=== PATIENT | male | born 1990 | race Caucasian/White ===

== ENCOUNTER 2020-03-21 13:42 | Emergency (ER) | payer OTHER, SELFPAY ==
[2020-03-21 13:46] VITALS: BP 151/93; PULSE 110; RESP 18; TEMP 36.6; O2SAT 100
--- NOTE | 2020-03-21 13:54 | ED.WOUNDLAC ---
HPI - Wound/Laceration General Chief Complaint: Wound/Laceration Stated Complaint: L FINGER LACERATION Time Seen by Provider: 03/21/20 13:54 Source: patient and RN notes reviewed Mode of arrival: ambulatory Limitations: no limitations History of Present Illness HPI narrative: 30 year old male who presents from work today with a laceration to the he aspect of his left distal ring finger which occurred about 3 hours ago when they were moving a menu board which came down and a 2X6 board hit his finger causing flap type of laceration. Patient states that he has been unable to control the bleeding he has large band aide to wound and holding towel over finger also. Patient is visibly shaking and states pain is sharp and throbbing to his finger, no injury to nail bed noted, wound on distal he surface flap type of laceration with some bruising of tissue noted. Onset (ago): hour(s) (3) Extremity Location: Left: hand (left ring finger) Place: work Patient tetanus UTD: No Context: accidental Associated symptoms: pain Treatments prior to arrival: bandage Related Data Allergies Allergy/AdvReac Type Severity Reaction Status Date / Time cefaclor [From Ceclor] Allergy Difficulty Verified 03/21/20 13:58 Breathing Penicillins Allergy Difficulty Verified 03/21/20 13:58 Breathing Review of Systems Review of Systems: Narrative: CONSTITUTIONAL: Denies fever, chills, or sweats. EYES: Denies visual changes, redness, or discharge. ENT: Denies rhinorrhea, congestion, sore throat, or otalgia. CARDIOVASCULAR: Denies chest pain, palpitations, or edema. RESPIRATORY: Denies cough or dyspnea. GASTROINTESTINAL: Denies abdominal pain, nausea, vomiting, or diarrhea. GENITOURINARY: Denies dysuria or hematuria. SKIN: Denies rash or itching.positive for laceration to distal he left ring finger MUSCULOSKELETAL: Denies back pain, joint pain, or myalgia. NEUROLOGIC: Denies headache, numbness, or weakness. PSYCHIATRIC: Denies anxiety or depression. All systems reviewed & are unremarkable except as noted in HPI and below PMFSH Past Medical History Medical History (Updated 03/22/20 @ 15:23 by Diane Joseph NP) No significant past medical history Surgical History Surgical History (Updated 03/22/20 @ 15:24 by Diane Joseph NP) No history of previous surgery Social History Social History (Updated 03/22/20 @ 15:24 by Diane Joseph NP) Smoking packs per day: 0.5 Smoking cigarettes per day: 10.0 Smoking status: Current every day smoker Tobacco type: cigarettes Alcohol intake: unknown Substance use: current Substance use type: marijuana Living arrangements: with family Gender identity (if verbalized by the patient): Male Comments At time of signature, agree with nursing past medical, surgical, social history. There is no relevant family history pertinent to the presenting complaint Exam Narrative: Exam Narrative: GENERAL: Well-appearing, well-nourished, and in no acute distress. HEAD: Normocephalic, atraumatic. EYES: PERRLA and EOMI. ENT: Nares clear, no rhinorrhea or epistaxis. Mucous membranes moist. NECK: Supple. CHEST: Clear to auscultation. No respiratory distress.SAO2 100% on room air HEART: Regular rate and rhythm. No murmur heard. Normal peripheral pulses. ABDOMEN: Soft, nontender, nondistended, normal active bowel sounds. EXTREMITIES: Normal range of motion. No edema. SKIN: Warm, dry, no rash. 2cm total flap type of laceration to the distal he aspect of left ring finger with moderate of bleeding noted. Patient denies any tingling or numbness to his finger, states sharp throbbing pain with no injury to nail bed noted. strong left radial pulse with hand warm to touch and pink. Stitches applied after localizing with 1% Lidocaine 5cc for a total of 8 patient tolerated well. NEURO: No focal deficits. Alert and oriented x3. Course Vital Signs Vital signs: Vital Signs Temperature 36.6 C 03/04
[2020-03-21] MEDS: TETANUS,DIPHTHERIA,AC PERTUSSIS ADULT (0.5 ML) BOOSTRIX IM (14:12)
== END 2020-03-21 14:54 | disposition home or self-care (01) ==
PROVIDERS: Emergency Provider Registered Nurse
DX: S61.215A Laceration without foreign body of left ring finger without damage to nail, initial encounter (principal); W20.8XXA Other cause of strike by thrown, projected or falling object, initial encounter; Z23 Encounter for immunization; F17.210 Nicotine dependence, cigarettes, uncomplicated
CPT/HCPCS: 12001; 90471; 90715; 99213; G0463

== ENCOUNTER 2020-04-02 14:59 | Emergency (ER) | payer OTHER, SELFPAY ==
[2020-04-02 15:04] VITALS: BP 138/79; PULSE 105; RESP 16; TEMP 36.9; O2SAT 99
--- NOTE | 2020-04-02 15:19 | ED.WOUNDLAC ---
HPI - Wound/Laceration General Chief Complaint: Wound/Laceration Stated Complaint: remove stitches Time Seen by Provider: 04/02/20 15:08 Source: patient and RN notes reviewed Mode of arrival: ambulatory Limitations: no limitations History of Present Illness HPI narrative: 30-year-old male presents with concern for suture removal. Reports he had sutures placed 12 days ago to the fourth digit of his left hand after he smashed his hand at work. Reports he has been using ointment as prescribed. Denies complications, drainage, erythema. Reports tenderness at the tip of the digit. Related Data Allergies Allergy/AdvReac Type Severity Reaction Status Date / Time cefaclor [From [facility]] Allergy Difficulty Verified 04/02/20 15:08 Breathing Penicillins Allergy Difficulty Verified 04/02/20 15:08 Breathing Review of Systems Review of Systems: Narrative: CONSTITUTIONAL: Denies malaise, chills, sweats, or fever. CARDIOVASCULAR: Denies chest pain, palpitations RESPIRATORY: Deniesdyspnea. SKIN: Sutures to the fourth digit of the left hand, reports tenderness MUSCULOSKELETAL: Denies musculoskeletal pain NEUROLOGIC: Denies numbness, weakness All systems reviewed & are unremarkable except as noted in HPI and below PMFSH Past Medical History Medical History No significant past medical history Surgical History Surgical History (Updated 03/22/20 @ 15:24 by Diane Joseph NP) No history of previous surgery Social History Social History (Updated 03/22/20 @ 15:24 by Diane Joseph NP) Smoking packs per day: 0.5 Smoking cigarettes per day: 10.0 Smoking status: Current every day smoker Tobacco type: cigarettes Alcohol intake: unknown Substance use: current Substance use type: marijuana Gender identity (if verbalized by the patient): Male Comments At time of signature, agree with nursing past medical, surgical, social and family history. There is no relevant family history pertinent to the presenting complaint Exam Narrative: Exam Narrative: GENERAL: Well-appearing, well-nourished, and in no acute distress. HEAD: Normocephalic EYES: PERRLA, conjunctivae clear NECK: Supple. CHEST: Speaks in full sentences. No respiratory distress. HEART: Regular rate and rhythm. Normal and equal peripheral pulses. EXTREMITIES: Fourth digit of left hand has have normal strength, reports slightly decreased sensation to the tip of the digit, center of the wound. 5/5 strength with digit flexion, extension. Range of motion normal. Normal digital cascade with flexion of fingers, median, ulnar and radial nerve intact. Good capillary refill and radial pulse. Distal capillary refill less than 3 seconds. SKIN: Warn, dry, intact, pink. 8 simple interrupted sutures noted to the tip of the fourth digit of the left hand to a U-shaped well approximated wound, skin is overly dry, crusted over sutures. Dark-colored tissue surrounding wound. No induration, erythema, drainage noted NEURO: Alert and oriented x3. PSYCH: Normal mood and affect Course Course Emergency Course: Discussed with patient following up with hand specialist if tissue color does not improve after suture removal. Patient is aware of diagnosis, understands and agrees to treatment plan. Anticipatory guidance given. Patient agrees to follow-up as directed and is aware of reasons to seek care at the emergency department. Portions of this record may have been created with voice recognition software Vital Signs Vital signs: Vital Signs Temperature 98.4 F 04/02/20 15:04 Pulse Rate 105 H 04/02/20 15:04 Respiratory Rate 16 04/02/20 15:04 Blood Pressure 138/79 04/02/20 15:04 Pulse Oximetry 99 04/02/20 15:04 Temperature 98.4 F 04/02/20 15:04 Pulse Rate 105 H 04/02/20 15:04 Respiratory Rate 16 04/02/20 15:04 Blood Pressure 138/79 04/02/20 15:04 Pulse Oximetry 99 04/02/20 15:04 Reviewed
--- NOTE | 2020-04-02 15:34 | PC.NURSE ---
1525- Finger soaked in hydrogen peroxide and water per provider request due to inability to remove sutures easily.
== END 2020-04-02 15:42 | disposition home or self-care (01) ==
PROVIDERS: Emergency Provider Nurse Practitioner
DX: S61.412D Laceration without foreign body of left hand, subsequent encounter (principal); X58.XXXD Exposure to other specified factors, subsequent encounter; F17.210 Nicotine dependence, cigarettes, uncomplicated
CPT/HCPCS: 99211; A9270; G0463

== ENCOUNTER 2024-09-13 12:04 | Emergency (ER) | payer OTHER, SELFPAY ==
[2024-09-13 12:13] VITALS: BP 160/77; PULSE 80; RESP 16; TEMP 36.6; O2SAT 100
--- NOTE | 2024-09-13 12:29 | ED.GENADULT ---
HPI - General Adult General Chief complaint: Unspecified Stated complaint: Hernia Time Seen by Provider: 09/13/24 12:20 Source: patient and RN notes reviewed Mode of arrival: ambulatory Limitations: no limitations History of Present Illness HPI narrative: 34-year-old male presents [facility] complaining of possible hernia to his belly button. Patient stated he noticed a protrusion head of his belly button approximately 1 week ago. Patient denies any apparent injury that might have caused it. Patient states he does have to lift objects around 50 lb at work. Patient denies any abdominal surgeries for any congenital hernias. Patient reports he notices it more when he coughs more when he uses abdomen muscles. Patient denies any abdominal pain, swelling, discharge, fevers, nausea, vomiting, or diarrhea. Related Data Allergies Allergy/AdvReac Type Severity Reaction Status Date / Time cefaclor (From [facility]) Allergy Difficulty Verified 04/02/20 15:08 Breathing Penicillins Allergy Difficulty Verified 04/02/20 15:08 Breathing Review of Systems Review of Systems: CONSTITUTIONAL: Denies fever, chills, or sweats. EYES: Denies visual changes, redness, or discharge. ENT: Denies rhinorrhea, congestion, sore throat, or otalgia. CARDIOVASCULAR: Denies chest pain, palpitations, or edema. RESPIRATORY: Denies cough or dyspnea. GASTROINTESTINAL: Denies abdominal pain, nausea, vomiting, or diarrhea. Positive for hernia. GENITOURINARY: Denies dysuria or hematuria. SKIN: Denies rash or itching. MUSCULOSKELETAL: Denies back pain, joint pain, or myalgia. NEUROLOGIC: Denies headache, numbness, or weakness. PSYCHIATRIC: Denies anxiety or depression. All other systems reviewed are negative, except as documented in HPI. [facility] Past Medical History Medical History No significant past medical history Surgical History Surgical History No history of previous surgery Social History Social History Smoking packs per day: 0.5 Smoking cigarettes per day: 10.0 Smoking status: Current every day smoker Tobacco type: cigarettes Alcohol intake: unknown Substance use: current Substance use type: marijuana Living arrangements: with family Gender identity (if verbalized by the patient): Male Comments At the time of my signature, I reviewed and agree with the nursing past medical, surgical, social, and family history. There is no relevant family history pertinent to the patient complaint. Exam Narrative: GENERAL: This is a well-nourished, well-developed adult, in no apparent distress. They are non ill-appearing, nontoxic appearing. HEAD: normocephalic, atraumatic. EYES: Sclera clear/white. Conjunctiva normal. Vision is grossly intact. Extraocular movements intact EARS: External ears normal, Hearing grossly intact. NOSE: External nose normal THROAT: Mucous membranes moist, NECK: Normal range of motion CARDIOVASCULAR: Regular rate and rhythm without murmurs, gallops, or rubs. RESPIRATORY: Clear to auscultation. Breath sounds equal bilaterally. No wheezes, rales, or rhonchi. GASTROINTESTINAL: Abdomen soft, flat, non-tender, nondistended. Bowel sounds are active. No hepato-splenomegaly. No guarding. No rebound tenderness. Umbilical hernia present. Hernia measuring approximately 2 cm x 1 cm. Hernias level with abdominal wall. Hernia without erythema, swelling, discharge, or tenderness to palpation. SKIN: warm, Dry, intact with no suspicious lesions or rash, good texture and turgor. NEURO: awake, alert, and oriented to person, place and time. There were no obvious focal neurologic abnormalities. EXTREMITIES: No joint tenderness, effusion, or edema noted. BACK: Nontender without deformity. Course Course Emergency Course: Portions of this record may have been created with voice recognition software Level of Care: Express Care Visit Vital Signs Vital signs: Vital Signs Temperature 97.9 F 09/13/24 12:13 Pulse Rate 80 09/13/24 12:13 Respiratory Rate 16 09/13/24 12:13 Blood Pressure 160/77 H 09/13/24 12:13 Pulse Oximetry 100 09/13/24 12:13 Temperature 97.9 F 09/13/24 12:13 Pulse Rate 80 09/13/24 12:13 Respiratory Rate 16 09/13/24 12:13 Blood Pressure 160/77 H 09/13/24 12:13 Pulse Oximetry 100 09/13/24 12:13 Reviewed Medical Decision Making MDM Narrative Medical decision making narrative: Patient likely has umbilical hernia. The hernia is present and the supine and standing position. Protrusion does not get worse with change in position or coughing. No evidence of incarcerated bowel. Patient has no pain, swelling, nausea, vomiting, or any issues with this hernia. Will refer patient to general surgeon for further evaluation and management. Discussed physical exam findings. Advised supportive measures and signs/symptoms to go to the ER. Pt is appropriate for outpt treatment and f/u. Differential Diagnosis Differential Diagnosis: Hernia, cellulitis, incarcerated bowel Vital Signs Vital Signs: Vital Signs Temperature 97.9 F 09/13/24 12:13 Pulse Rate 80 09/13/24 12:13 Respiratory Rate 16 09/13/24 12:13 Blood Pressure 160/77 H 09/13/24 12:13 Pulse Oximetry 100 09/13/24 12:13 Temperature 97.9 F 09/13/24 12:13 Pulse Rate 80 09/13/24 12:13 Respiratory Rate 16 09/13/24 12:13 Blood Pressure 160/77 H 09/13/24 12:13 Pulse Oximetry 100 09/13/24 12:13 Critical Care Time Critical Care Time Critical Care Time: No Discharge Plan Discharge Clinical Impression: Hernia, umbilical Qualifiers: Obstruction and gangrene presence: without obstruction or gangrene Qualified Code(s): K42.9 - Umbilical hernia without obstruction or gangrene Patient Disposition: Home Condition: Stable Instructions: Umbilical Hernia (ED) Additional Instructions: It appears you have an umbilical hernia. Please follow-up with a general surgeon for further evaluation and management. Please avoid lifting heavy objects. If you develop any abdominal pain, nausea, vomiting, fevers, increased swelling or redness to the hernia, or any other concerns please go to the ER immediately. Follow-up with primary care provider in 3-5 days. Your blood pressure was elevated above 120/80 today at urgent care. This puts you above the threshold for follow-up. Please schedule a follow-up with your personal physician as soon as possible for further evaluation and treatment even blood pressures exceeding 120/80 may indicate pre-hypertension. Patient Language: Azerbaijani Follow-up/Referrals: Willow Arriaga MD [Physician] - (Umbilical hernia) PHYSICIAN,[employer] [Primary Care Provider] - Gama Camarillo MD [Physician] - Time of Disposition: 12:27
== END 2024-09-13 12:30 | disposition home or self-care (01) ==
DX: K42.9 Umbilical hernia without obstruction or gangrene (principal); F17.210 Nicotine dependence, cigarettes, uncomplicated; F12.90 Cannabis use, unspecified, uncomplicated
CPT/HCPCS: 99211; G0463

== ENCOUNTER 2024-10-17 02:04 | Day surgery (SDC) | payer OTHER, SELFPAY ==
[2024-10-07 14:29] VITALS: BMI 22.2
--- NOTE | 2024-10-07 14:34 | PC.NURSE ---
Report to the Outpatient Waiting Room, entrance under the green pavilion located off [facility], at time _1000_ on date _[id number]_. Planned Procedure Time: _1200_.? Time changes happen often and if your time is changed the preop area will call you the afternoon before. - You and your visitor will be asked to self-screen and do not enter if you have any COVID symptoms. Please call surgeon if you need to reschedule. - A mask is optional within the hospital at this time. Patients may have clear liquids (water, carbonated beverages, clear teas, apple juice) until 3 hours prior to surgery with a maximum of 20 ounces. - No food from midnight until time of surgery and no smoking, or chewing tobacco (or any form of nicotine). No chewing gum, candy or mints. Take only the following medications with a SIP of water on the morning of surgery: __None DO NOT STOP ANY OF YOUR OTHER PRESCRIPTION MEDICATIONS PRIOR TO SURGERY EXCEPT THE FOLLOWING Hold all vitamins and supplements for 3 days per anesthesiologist. Medications to discontinue per physician Date to take last dose Please no make-up, nail swazi, hairspray, perfume, deodorant, or body powder the day of surgery.? No jewelry (including any body piercings) or valuables the day of surgery, leave them at home.? Please take a shower or bath the night before, or the morning of, surgery with an antibacterial soap.? Wear comfortable, loose fitting clothing.? - Jewelry must be removed prior to entering the operating room.? Rings and piercings that are not removed may be cut off. - The hospital will not accept responsibility for valuables.? - Please leave all valuables, including medications, at home the day of surgery. If you are going home after surgery, a licensed ems driver must drive you home.? - NO public transportation without another adult if you receive anesthesia. - We recommend that an adult stay with you for 24 hours following discharge. - We also recommend that you do not drive, make important decision, drink alcoholic beverages, or take any drugs that were not prescribed by your health care provider for at least 24 hours after your discharge time. Follow any additional instructions given to you from your surgeon. Telephone instructions given to __Nick__and asked if any additional questions and then verbalized understanding. Patient advised to call surgeon office or pre surgery nurse liaison [phone] if any additional questions.
[2024-10-17] VITALS (10 sets, daily range): BP systolic 107–133; BP diastolic 64–92; PULSE 61–76; RESP 12–16; TEMP 36.6–36.9; O2SAT 96–100; BMI 21.6
[2024-10-17] MEDS: LACTATED RINGERS 1,000 ML 30 ML IV CONT (10:10)
[2024-10-17] MEDS: KETOROLAC 15 MG/ML VIAL (*BKC) IV PUSH (10:24)
[2024-10-17] MEDS: ACETAMINOPHEN 500 MG TABLET 1000 MG PO (10:24)
--- NOTE | 2024-10-17 11:48 | WPDANESEPPF ---
Anes - Initial Pre Proc Eval Procedure: Operation Date: 10/17/24 12:00 Proposed Procedures p Open Umbilical Hernia Repair with Mesh - Willow Arriaga MD Date/Time: 10/17/24 11:48 Surgeon: Willow Arriaga MD Pre Op Diagnosis: Umbilical Hernia Patient Data Age: 34 Gender: M Height: 1.83 m Weight: 72.35 kg Last Vital Signs Temp 36.9 C 10/17/24 09:47 Pulse 75 10/17/24 09:47 Resp 14 10/17/24 09:47 BP 133/83 10/17/24 09:47 Pulse Ox 100 10/17/24 09:47 O2 Del Method Room Air 10/17/24 09:47 Allergies Allergy/AdvReac Type Severity Reaction Status Date / Time cefaclor (From Ceclor) Allergy Difficulty Verified 10/17/24 09:59 Breathing Penicillins Allergy Difficulty Verified 10/17/24 09:59 Breathing Home Medications ?Medication ?Instructions ?Recorded ?Confirmed ?Type No Home Medications 09/27/24 10/07/24 History Patient hx anesthesia problems: none Family hx anesthesia problems: none Results Review: All pre-operative results and documents have been reviewed as part of the pre-operative evaluation. [facility] Past Medical History Medical History No significant past medical history Surgical History Surgical History No history of previous surgery Social History Social History (Updated 09/27/24 @ 14:43 by Glenys Mcgill MA) Smoking packs per day: 0.5 Smoking cigarettes per day: 10.0 Smoking status: Current every day smoker Tobacco type: cigarettes Alcohol intake: current Substance use: current Substance use type: marijuana Do You Feel Safe in your Home?: Yes Lack of Transportation: No Lack of Food: Never True Current Housing: I Have Housing Concerned About Future Housing: No Difficulty Paying Gas/Electric Bills: No Difficulty Paying for Meds: No Currently Unemployed: No Education: High School Diploma/GED Difficulty w/ Childcare or Family Care: No Living arrangements: with family Gender identity (if verbalized by the patient): Male Anes - Eval Final PreProcedure Day of Procedure 10/17/24 11:48 Patient weight: normal Heart: regular rate and rhythm Lungs: clear to auscultation and normal air movement Airway: Mallampati scale class II Neurological: alert and oriented Last oral intake: >/= 8 hours ASA classification: II Emergent: no Anesthetic plan: proceed Anesthesia type and monitoring: general GIVS and standard monitoring Results Review: All pre-operative results and documents have been reviewed as part of the pre-operative evaluation. Informed Consent: The patient's anesthetic plan and its attendant risks and benefits were discussed with the patient/family/POA. Questions were solicited and answers provided to the satisfaction of the patient/family/POA.
--- NOTE | 2024-10-17 12:02 | WPDHPUPDATE1 ---
History and Physical Update Update Date/Time: 10/17/24 12:02 History and Physical has been reviewed, including an updated exam of the patient. There are NO changes in the patient's condition. Risks, benefits, and alternatives have been discussed and questions answered. Patient agrees to proceed with procedure.
[2024-10-17] MEDS: CLINDAMYCIN 900 MG/D5W 50 ML 900 MG/50 ML PIGGYBACK 50 MG IVPB (12:07)
[2024-10-17] MEDS: BUPIVACAINE/EPINEPHRINE 0.5% 30 ML VIAL INFILTRATE (12:36)
--- NOTE | 2024-10-17 13:11 | W.PM.PROC2 ---
Procedure Note - Detailed Date of Procedure 10/17/24 Pre-op Diagnosis incarcerated umbilical hernia Post-op Diagnosis Same Procedure Performed Primary repair of incarcerated umbilical hernia, defect measuring 1.5 cm Surgeon Willow Arriaga MD Anesthesia General and Local Indications 34-year-old male presenting to the office with an incarcerated umbilical hernia. Patient reports slow growth over time and symptomatology Findings incarcerated umbilical hernia with incarcerated preperitoneal fat, defect measuring 1.5 cm Description of Procedure The patient was taken the operating room and placed in the supine position. After adequate induction of general anesthesia, the patient was prepped and draped in the normal sterile fashion. A time-out was then done to verify the patient's identity as well as the procedure being performed. I then localized the area in and around this periumbilical hernia. A curvilinear infraumbilical incision was then made in the dermis. This was carried down through the dermis into subcutaneous tissue. The dissection was continued to the level of the anterior fascia. At this point, I was able to get the hernia and umbilicus superiorly. I then the umbilicus off the underlying hernia. I then excised the hernia sac and examined the incarcerated contents. This was noted to be some inflamed preperitoneal fat. The fat was quite inflamed and given this I went ahead and excised this incarcerated. This left an approximately 1.5 cm defect in the anterior fascia. This was closed primarily with interrupted 0 Ethibond suture x4. I then copiously irrigated the cavity and no other pathology was seen. I then reapproximated the umbilicus to our fascial repair using a 3-0 Vicryl U-stitch. The subcutaneous tissue was then closed with 3-0 Vicryl suture. The skin was closed with 4-0 Monocryl subcuticular suture. Dermabond was then placed on the wound. The patient tolerated the procedure well was extubated postoperatively. He will be sent to the recovery room in stable condition. Estimated Blood Loss 5 Pathology None sent Complications No immediate complications Condition Stable Disposition PACU [facility] Billing Surgery - Charge Forward: Surgery Billing
== END 2024-10-17 15:30 | disposition home or self-care (01) ==
PROVIDERS: Visit Provider Surgery
PROC: (CPT 49592; principal; 2024-10-17 12:00)
DX: K42.0 Umbilical hernia with obstruction, without gangrene (principal); F17.210 Nicotine dependence, cigarettes, uncomplicated; F12.90 Cannabis use, unspecified, uncomplicated
CPT/HCPCS: 49592; A9270; J1100; J1885; J2003; J2250; J2405; J2704; J3010; J7120